=== PATIENT | female | born 1980 | race Hispanic/Latino ===

== ENCOUNTER 2023-02-08 15:07 | Emergency (ER) | payer OTHER, SELFPAY ==
[2023-02-08] MEDS ORDERED: Ondansetron ODT 4 MG TAB ONE (16:25)
[2023-02-08] MEDS ORDERED: Ibuprofen 200 MG TAB ONE (16:25)
== END 2023-02-08 16:27 | disposition home or self-care (01) ==
LOC: ERS 15:07
DX: S09.90XA Unspecified injury of head, initial encounter (principal); F17.210 Nicotine dependence, cigarettes, uncomplicated; W01.190A Fall on same level from slipping, tripping and stumbling with subsequent striking against furniture, initial encounter
CPT/HCPCS: 99283; Q0162